=== PATIENT | male | born 1985 | race Caucasian/White ===

== ENCOUNTER 2019-10-31 21:15 | Inpatient (IN) | payer OTHER ==
[~2019-10-31] VITALS: Ht 188 cm; Wt 117.9 kg
--- NOTE | 2019-10-31 21:15 | NUR ---
BIBS FOR C/O MID STERNAL, NON- REDIATING CP, NAUSEA AND H/A X 40 MIN BUSINESS APPLICATIONS SPECIALIST; PT AWAKE, ALERT, -SOB, PLACED ON MONITOR, +CP, PENDING ER PROVIDER DENIZ
[2019-10-31 21:50] LABS: BASOPHILS # (AUTO) 0.1 /CMM (0.0-0.2); BASOPHILS % (AUTO) 0.9 % (0.0-2.0); HEMATOCRIT 47 % (39-51); HEMOGLOBIN 15.9 g/dL (13.5-17.5); LYMPHOCYTES # (AUTO) 1.9 /CMM (0.8-4.8); LYMPHOCYTES % (AUTO) 28.7 % (20.0-44.0); MEAN CORPUSCULAR HGB CONC 34 g/dl (31.0-36.0); MEAN CORPUSCULAR VOLUME 90 fL (80-96); MONOCYTES # (AUTO) 0.5 /CMM (0.1-1.30); MONOCYTES % (AUTO) 7.1 % (2.0-12.0); NEUTROPHILS % (AUTO) 61.3 % (43.0-81.0); PLATELET COUNT (AUTO) 227 /CMM (150-450); RED BLOOD CELL COUNT(AUTO) 5.25 MIL/uL (4.5-6.0); WHITE BLOOD COUNT (AUTO) 6.5 K/uL (4.3-11.0)
[2019-10-31 22:07] LABS: CALCIUM, SERUM 8.7 mg/dL (8.5-10.1); CREATININE 1.2 mg/dL (0.6-1.3); POTASSIUM 3.7 mmol/L (3.5-5.1)
[2019-10-31] MEDS ORDERED: ASPIRIN 325 MG TABLET PO ONE (23:00)
[2019-10-31] MEDS ORDERED: LORAZEPAM INJ 2 MG/ML VIAL IV ONE (23:00)
[2019-10-31] MEDS ORDERED: SERT100T PO (23:11)
[2019-10-31] MEDS ORDERED: ATOR10TA PO (23:11)
[2019-10-31] MEDS ORDERED: ASPIRIN 325 MG TABLET ONE (23:13)
[2019-10-31] MEDS ORDERED: LORAZEPAM INJ 2 MG/ML VIAL ONE (23:13)
--- NOTE | 2019-10-31 23:29 | NUR ---
REPORT GIVEN TO CHARGE NURSE JOSE LOVING, PT WILL BE TRANSPORTED TO 3RD FLOOR
[2019-10-31] MEDS ORDERED: MORPHINE SULFATE INJ 2 MG/ML DISP.SYRIN IV PRN (23:30)
[2019-10-31] MEDS ORDERED: ACETAMINOPHEN 325 MG TABLET PO PRN (23:30)
[2019-10-31] MEDS ORDERED: ONDANSETRON HCL/PF 4 MG/2 ML VIAL IVP PRN (23:30)
[2019-10-31] MEDS ORDERED: Z GUARD REMEDY 2 OZ OINT TP PRN (23:30)
[2019-10-31] MEDS ORDERED: VALSARTAN 80 MG TABLET PO SCH (23:30)
--- NOTE | 2019-10-31 23:59 | NUR ---
PT TRANSPORTED TO 3RD FLOOR
[2019-11-01] VITALS: BP 138/94
[2019-11-01] MEDS ORDERED: ZOLPIDEM TARTRATE 10 MG TABLET PO PRN
--- NOTE | 2019-11-01 | NUR ---
SUPPLY TECHNICIANWATER LEAK REPAIRER NOTES RECEIVED PATIENT FROM ER VIA [place], AMBULATORY ALERT AND ORIENTED X 3. VERBALLY RESPONSIVE AND ABLE TO FOLLOW DIRECTIONS. BREATHING REGULAR AND UNLABORED ON ROOM AIR. RIGHT AC G18 IV LINE INTACT AND PATENT, FLUSHING WELL WITH NO BLEEDING OR S/S OF INFILTRATION SEEN. BODY ASSESSMENT DONE, SKIN INTACT CLEAN AND DRY. PATIENT HAS NO ADVANCE DIRECTIVES AND WISHES TO BE FULL CODE. ATTACHED TO CLEANING STAFF SUPERVISOR WITH NSR AT 93bpm INITIAL RHYTHM. DENIES SUICIDAL/HOMICIDAL IDEATION. COMPLAINED OF 8/10 CHEST PAIN. NONPHARMACOLOGICAL INTERVENTIONS PROVIDED. BED LOW AND LOCKED ON SEMI FOWLERS POSITION. CALL LIGHT IN REACH. WILL CONTINUE TO MONITOR.
[2019-11-01] MEDS: ENOXAPARIN SODIUM 40 MG/0.4 ML DISP.SYRIN SQ SCH ×2 (00:24→21:02)
--- NOTE | 2019-11-01 00:40 | NUR ---
HUMANITIES TEACHER NOTES COMPLAINED OF 8/10 CHEST PAIN. MORPHINE 2MG GIVEN VIA IV PUSH. NONPHARMACOLOGICAL INTERVENTIONS PROVIDED. VITAL SIGNS WNL. WILL CONTINUE TO MONITOR.
[2019-11-01 04:00] VITALS: BP 123/71
--- NOTE | 2019-11-01 06:40 | NUR ---
REEL TENDER CLOSING NOTES PATIENT IN BED ALERT AND ORIENTED X 3. VERBALLY RESPONSIVE AND ABLE TO FOLLOW DIRECTIONS. BREATHING REGULAR AND UNLABORED ON ROOM AIR. RIGHT AC G18 IV LINE PATENT AND FLUSHING WELL. MAINTAINED ON CARDIAC MONITORING WITH NSR AT 78bpm. NO COMPLAINTS OF PAIN/DISCOMFORT REPORTED AT THIS TIME. WILL ENDORSE TO MORNING SHIFT FOR JULIANNE.
[2019-11-01 08:00] VITALS: BP 128/87
--- NOTE | 2019-11-01 08:00 | NUR ---
rn opening notes patient received on room air, no sob noted, patient denies pain at this time. Patient with r ac 18 SL, patient to have CT this morning. bed at the lowest setting, call light within reach, side rails up x2.
[2019-11-01 08:18] LABS: ALBUMIN 3.4 g/dL (3.4-5.0); BILIRUBIN,TOTAL 0.4 mg/dL (0.2-1.0); CALCIUM, SERUM 8.5 mg/dL (8.5-10.1); CREATININE 1.1 mg/dL (0.6-1.3); PHOSPHORUS 3.8 mg/dL (2.5-4.9); POTASSIUM 4.1 mmol/L (3.5-5.1); TOTAL PROTEIN, SERUM 7.3 g/dL (6.4-8.2)
[2019-11-01 08:25] LABS: THYROID STIMULATING HORMONE 4.664 uIU/mL (0.358-3.74)
[2019-11-01 08:31] LABS: BASOPHILS # (AUTO) 0.1 /CMM (0.0-0.2); BASOPHILS % (AUTO) 1.1 % (0.0-2.0); EOSINOPHILS % (AUTO) 2.8 % (0.0-6.0); HEMATOCRIT 47 % (39-51); HEMOGLOBIN 15.8 g/dL (13.5-17.5); LYMPHOCYTES # (AUTO) 2.1 /CMM (0.8-4.8); LYMPHOCYTES % (AUTO) 40.9 % (20.0-44.0); MEAN CORPUSCULAR HGB CONC 33 g/dl (31.0-36.0); MEAN CORPUSCULAR VOLUME 90 fL (80-96); MONOCYTES # (AUTO) 0.4 /CMM (0.1-1.30); MONOCYTES % (AUTO) 8.3 % (2.0-12.0); NEUTROPHILS # (AUTO) 2.4 /CMM (1.8-8.9); NEUTROPHILS % (AUTO) 46.9 % (43.0-81.0); PLATELET COUNT (AUTO) 204 /CMM (150-450); RED BLOOD CELL COUNT(AUTO) 5.26 MIL/uL (4.5-6.0)
[2019-11-01] MEDS: VALSARTAN 80 MG TABLET PO SCH (08:42)
[2019-11-01] MEDS: METOPROLOL TARTRATE 50 MG TABLET PO SCH ×2 (08:42→21:01)
[2019-11-01] MEDS: ASPIRIN EC 81 MG TABLET.DR PO SCH (08:42)
[2019-11-01] MEDS: SERTRALINE HCL 50 MG TABLET PO SCH (08:42)
[2019-11-01] MEDS ORDERED: IV NS 0.9% 250 ML IV ONE (09:53)
[2019-11-01] MEDS ORDERED: IOHEXOL-350 100 ML VIAL IV ONE (09:53)
[2019-11-01] MEDS ORDERED: METOPROLOL TARTRATE INJ 5 MG/5 ML AMPUL ONE (09:57)
[2019-11-01] MEDS ORDERED: NITROGLYCERIN 4.9 GM SPRAY ONE (09:57)
[2019-11-01] MEDS ORDERED: IV NS 0.9% 500 ML IV PRN (10:00)
[2019-11-01] MEDS ORDERED: METOPROLOL TARTRATE INJ 5 MG/5 ML AMPUL IVP PRN (10:00)
[2019-11-01] MEDS ORDERED: NITROGLYCERIN 0.4 MG/TAB BOTTLE SL ONE (10:00)
--- NOTE | 2019-11-01 10:32 | NUR ---
received from floor via wheelchair, CTA heart done, Metoprolol 5 mg/IVP given ; NTG 0.04 mg SL given, tolerated procedure; denies CP or SOB at this time; report given to floor RN Melva Del Cid; sent back to floor via wheelchair
[2019-11-01 12:00] VITALS: BP 125/78
[2019-11-01 16:00] VITALS: BP 122/78
--- NOTE | 2019-11-01 18:39 | NUR ---
rn closing notes Patient remains on room air, no sob noted, patient denies any chest pain at this time. Denies any pain at this time. R AC 18 saline lock. Awaiting for DC tomorrow. Angio CT is negative. Bed at the lowest setting, call light within reach, side rails up x2. Will give report to NOC RN for JULIANNE bedside.
--- NOTE | 2019-11-01 19:30 | NUR ---
MARKETING ANALYTICS LEAD OPENING NOTES: RECEIVED PATIENT ALERT AND ORIENTED X 3. AWAKE IN BED, VERBALLY RESPONSIVE AND ABLE TO FOLLOW DIRECTIONS AND MAKE NEEDS KNOWN. BREATHING REGULAR AND UNLABORED ON ROOM AIR. RIGHT AC G18 IV LINE INTACT AND PATENT, FLUSHING WELL WITH NO BLEEDING OR S/S OF INFILTRATION, SL. ATTACHED TO SURGERY SPECIALIST WITH NSR AT 75bpm. DENIES SUICIDAL/HOMICIDAL IDEATION. NO C/O PAIN OR DISCOMFORT AT THIS TIME. SAFETY MEASURES IN PLACE. BED LOW AND LOCKED ON SEMI FOWLERS POSITION. CALL LIGHT IN REACH. WILL CONTINUE TO MONITOR. /
--- NOTE | 2019-11-01 19:53 | NUR ---
TELE/RN NOTES: BELONGINGS RECEIVED FROM CONTAINING LAPTOP, IPAD, AND CHARGERS.
[2019-11-01 20:06] VITALS: BP 137/78
[2019-11-01] MEDS ORDERED: ATORVASTATIN 10 MG TABLET PO SCH (22:00)
[2019-11-02 00:40] VITALS: BP 128/83
[2019-11-02 04:00] VITALS: BP 116/74
--- NOTE | 2019-11-02 06:53 | NUR ---
TELE/RN CLOSING NOTES: PATIENT REMAINS ALERT AND ORIENTED X4. VERBALLY RESPONSIVE AND ABLE TO FOLLOW DIRECTIONS AND MAKE NEEDS KNOWN. BREATHING REGULAR AND UNLABORED ON ROOM AIR. RIGHT AC G18 IV LINE INTACT AND PATENT, FLUSHING WELL WITH NO BLEEDING OR S/S OF INFILTRATION, SL. ATTACHED TO PARK INTERPRETER WITH SB AT 55bpm. SLEPT WELL THROUGH THE NIGHT. ALL NEEDS MET AND RENDERED. DENIES SUICIDAL/HOMICIDAL IDEATION. NO C/O PAIN OR DISCOMFORT AT THIS TIME. SAFETY MEASURES IN PLACE. BED LOW AND LOCKED ON SEMI FOWLERS POSITION. CALL LIGHT IN REACH. WILL ENDORSE TO NEXT SHIFT FOR JULIANNE.
[2019-11-02] MEDS ORDERED: ATOR10TA PO (07:25)
[2019-11-02 08:00] VITALS: BP 136/78
--- NOTE | 2019-11-02 08:00 | NUR ---
TELE/RN OPENING NOTE Patient is resting in bed, A/O x4, showing no signs of acute distress or SOB. Patient has no complaints of pain at this time. Patient is able to ambulate himself to the bathroom. IV line in the RAC #18g is clean and intact s/l. MD at the bedside discussing discharge with the patient. Bed is in lowest position side rails x2 in upright position, call light is within reach and patient is aware of how to call for assistance when needed. Will continue with plan of care.
[2019-11-02 08:06] LABS: CALCIUM, SERUM 8.8 mg/dL (8.5-10.1); CREATININE 1.1 mg/dL (0.6-1.3); POTASSIUM 4.6 mmol/L (3.5-5.1)
[2019-11-02] MEDS: SERTRALINE HCL 50 MG TABLET PO SCH (08:14)
[2019-11-02] MEDS: VALSARTAN 80 MG TABLET PO SCH (08:14)
[2019-11-02 08:15] VITALS: BP 136/78
[2019-11-02] MEDS: METOPROLOL TARTRATE 50 MG TABLET PO SCH (08:15)
[2019-11-02] MEDS: ASPIRIN EC 81 MG TABLET.DR PO SCH (08:15)
[2019-11-02 09:01] LABS: BASOPHILS # (AUTO) 0.1 /CMM (0.0-0.2); EOSINOPHILS % (AUTO) 2.7 % (0.0-6.0); HEMATOCRIT 53 % (39-51); HEMOGLOBIN 17.2 g/dL (13.5-17.5); LYMPHOCYTES # (AUTO) 1.8 /CMM (0.8-4.8); LYMPHOCYTES % (AUTO) 33.2 % (20.0-44.0); MEAN CORPUSCULAR HGB CONC 33 g/dl (31.0-36.0); MEAN CORPUSCULAR VOLUME 93 fL (80-96); MONOCYTES # (AUTO) 0.5 /CMM (0.1-1.30); MONOCYTES % (AUTO) 9.2 % (2.0-12.0); NEUTROPHILS # (AUTO) 2.9 /CMM (1.8-8.9); NEUTROPHILS % (AUTO) 53.9 % (43.0-81.0); PLATELET COUNT (AUTO) 176 /CMM (150-450); RED BLOOD CELL COUNT(AUTO) 5.68 MIL/uL (4.5-6.0); WHITE BLOOD COUNT (AUTO) 5.4 K/uL (4.3-11.0)
--- NOTE | 2019-11-02 10:16 | NUR ---
TELE/MAP AND CHART MOUNTER NOTE Patient is medically stable for discharge. Patient is resting in bed, A/O x4, showing no signs of acute distress or SOB. Patient has no complaints of pain at this time. Patient is able to ambulate himself to the bathroom. IV line in the RAC #18g removed. ID band removed. DC instructions provided and patient verbalized understanding. SKin assessed and skin remains intact. All belongings are with patient. Patient left unit ambulatory picked up by family in private car en route to home.
== END 2019-11-02 10:15 | disposition home or self-care (01) | DRG 282 ==
LOC: ER 21:18 → TELE 23:01
PROVIDERS: ADMIT Nurse Practitioner Acute Care; ATTEND Family Medicine
DX: I21.4 Non-ST elevation (NSTEMI) myocardial infarction (principal); E78.5 Hyperlipidemia, unspecified; I10 Essential (primary) hypertension; F32.9 Major depressive disorder, single episode, unspecified; E66.9 Obesity, unspecified; G47.33 Obstructive sleep apnea (adult) (pediatric); R73.9 Hyperglycemia, unspecified; Z68.33 Body mass index [BMI] 33.0-33.9, adult
CPT/HCPCS: 36415; 71045-TC; 75574; 80048-TC; 80053-TC; 80061-TC; 82550-TC; 83735-TC; 84100-TC; 84443-TC; 84484-TC; 85025-TC; 87081-TC; 93307-TC; G0378; J1650; J2060; J2270; J3490; J7050; Q9967

== ENCOUNTER 2020-02-28 21:45 | Emergency (ER) | payer OTHER ==
[~2020-02-28] VITALS: Ht 188 cm; Wt 113.4 kg
[~2020-02-28 21:45] MED LIST: ATOR10TA PO; SERT100T PO
[2020-02-28] MEDS ORDERED: BENZOIN COMPOUND TINCT 60 ML BOTTLE ONE (22:00)
--- NOTE | 2020-02-28 22:04 | NUR ---
C/O L SIDED CHEST PAIN " PRESSURE " NON RADIATING, CONTINUOUSLY WITH SOB X1 HR PREPARATORY TECHNICIAN. NOTED PT DIAPHORETIC. PT AAOX4, VSS. RR EVEN & UNLABORED. DENIES DIZZINESS, N/V, HEADACHE, ARM/JAW PAIN @ THIS TIME. AWAITING EVAL BY ERMD. PLACED ON MALE IMPERSONATOR, ST. WILL CONT TO MONITOR.
--- NOTE | 2020-02-28 22:08 | NUR ---
DR. STEVENSON AT FOR EVAL.
[2020-02-28 22:32] LABS: EOSINOPHILS % (AUTO) 2.2 % (0.0-6.0); HEMATOCRIT 49 % (39-51); HEMOGLOBIN 16.5 g/dL (13.5-17.5); LYMPHOCYTES # (AUTO) 1.4 /CMM (0.8-4.8); LYMPHOCYTES % (AUTO) 23.2 % (20.0-44.0); MEAN CORPUSCULAR HGB CONC 34 g/dl (31.0-36.0); MEAN CORPUSCULAR VOLUME 88 fL (80-96); MONOCYTES # (AUTO) 0.3 /CMM (0.1-1.30); MONOCYTES % (AUTO) 5.7 % (2.0-12.0); NEUTROPHILS # (AUTO) 4.1 /CMM (1.8-8.9); NEUTROPHILS % (AUTO) 68.9 % (43.0-81.0); PLATELET COUNT (AUTO) 194 /CMM (150-450); RED BLOOD CELL COUNT(AUTO) 5.53 MIL/uL (4.5-6.0)
[2020-02-28 23:11] LABS: CALCIUM, SERUM 9.1 mg/dL (8.5-10.1); CARBON DIOXIDE 24 mmol/L (21-32); CHLORIDE 101 mmol/L (98-107); CREATININE 1.1 mg/dL (0.6-1.3); GLUCOSE 120 mg/dL (74-106); POTASSIUM 3.5 mmol/L (3.5-5.1); SODIUM SERUM 136 mmol/L (136-145); UREA NITROGEN, BLOOD 17 mg/dL (7-18)
--- NOTE | 2020-02-29 01:05 | NUR ---
Patient is resting comfortably in bed with eyes closed. Easily aroused. VSS
--- NOTE | 2020-02-29 02:56 | NUR ---
pt is medically stable for d/c. IV removed. Catheter intact and site benign. Pressure and 4x4 applied to site. No bleeding noted.Patient discharged to home in stable condition. Written and verbal after care instructions given. Patient verbalizes understanding of instruction.
[2020-02-29 02:57] VITALS: BP 139/70
== END 2020-02-29 02:57 | disposition home or self-care (01) ==
LOC: ER 21:47
DX: R07.89 Other chest pain (principal); F17.200 Nicotine dependence, unspecified, uncomplicated; Z98.890 Other specified postprocedural states; Z79.899 Other long term (current) drug therapy
CPT/HCPCS: 36415; 71045-TC; 80048-TC; 84484-TC; 85025-TC